=== PATIENT | male | born 1970 | race Caucasian/White ===

== ENCOUNTER 2016-12-23 11:54 | Emergency (ER) | payer OTHER ==
[~2016-12-23] VITALS: Ht 160 cm; Wt 72.0 kg
[2016-12-23 11:59] VITALS: Ht 160 cm; Wt 72.0 kg
[2016-12-23 14:15] LABS: ADD SCAN DIFF NO
[2016-12-23 14:18] LABS: BASOPHILS % 0.3 % (0.0-2.0); EOSINOPHILS # 0.1 10^3/ul (0.0-0.5); EOSINOPHILS % 0.7 % (0.0-7.0); HEMATOCRIT 36.1 % (42.0-52.0); HEMOGLOBIN 11.5 g/dl (14.0-18.0); LYMPHOCYTES # 1.8 10^3/ul (0.8-2.9); LYMPHOCYTES % 16.8 % (15.0-51.0); MEAN CORPUSCULAR HEMOGLOBIN 29.6 pg (29.0-33.0); MEAN CORPUSCULAR HGB CONC 31.9 g/dl (32.0-37.0); MEAN PLATELET VOLUME 8.5 fl (7.4-10.4); MONOCYTE # 0.5 10^3/ul (0.3-0.9); MONOCYTES % 4.6 % (0.0-11.0); NEUTROPHIL # 8.5 10^3/ul (1.6-7.5); NEUTROPHILS % 77.3 % (39.0-77.0); PLATELET COUNT 456 10^3/UL (140-415); RED BLOOD COUNT 3.88 10^6/ul (4.70-6.10); RED CELL DISTRIBUTION WIDTH 14.2 % (11.5-14.5); WHITE BLOOD COUNT 10.9 10^3/ul (4.8-10.8)
[2016-12-23 14:30] LABS: ALBUMIN 4.2 g/dl (3.3-4.9)
[2016-12-23 14:31] LABS: POTASSIUM 4.2 mmol/L (3.5-5.1)
[2016-12-23 14:33] LABS: BILIRUBIN,INDIRECT 1.1 mg/dl (0-1.1); BILIRUBIN,TOTAL 1.1 mg/dl (0.2-1.3); CALCIUM 9.4 mg/dl (8.4-10.2); CREATININE 0.74 mg/dl (0.61-1.24); TOTAL PROTEIN 8.3 g/dl (6.1-8.1)
[2016-12-23 14:39] LABS: ALBUMIN/GLOBULIN RATIO 1.02
[2016-12-23] MEDS ORDERED: SOD CHLORIDE 0.9% 100 ML ONE (14:46)
[2016-12-23] MEDS ORDERED: IOHEXOL 300MG/ML 150 ML BTL ONE (14:46)
--- NOTE | 2016-12-23 15:33 | RADRPT ---
PROCEDURE: CT abdomen and pelvis with contrast. CLINICAL INDICATION: Abdominal pain. The patient is status post abdominal surgery 2 months prior. TECHNIQUE: CT scan of the abdomen and pelvis with contrast was performed after the uneventful intravenous admin istration of 100 cc of Omnipaque-300. Coronal and sagittal reformatted images were obtained from the axial source images. The total exam CTDI equals 10.43 mGy and the total exam DLP equals 668.3 mGy-c m. One or more of the following dose reduction techniques were used: - Automated exposure control. - Adjustment of the mA and/or kV according to patient size. - Use of iterative reconstruction technique. COMPARISON: None available. FINDINGS: Visualized lower thorax: There is subsegmental atelectasis at both lung bases and within the lingula. The visualized heart is unremarkable. Hepatobiliary system and spleen: The liver is normal in size and density with no focal hepatic lesion identified. There is no intra o r extrahepatic biliary ductal dilatation. The gallbladder is unremarkable. The spleen is unremarkabl e. The pancreas is unremarkable. Adrenal glands and genitourinary system: The adrenal glands are unremarkable. There are no renal masses or hydronephrosis. The urinary bladde r is unremarkable. The prostate gland and seminal vesicles are unremarkable. Gastrointestinal system: There is postoperative change related to prior hemicolectomy with anastomosis in the right mid abdom en and right lower quadrant. There is also been prior right lower quadrant colostomy status post ta [place]. There is mild asymmetric thickening of the right rectus muscle with no focal drainable colle ction within the subcutaneous tissues. There is no bowel wall thickening or evidence of obstruction. There is swirling of the mesentery with inflammatory change and small foci of air lower abdomen at and below the level of the umbilicus with small amount of surrounding fluid in the adjacent soft ti ssues. No focal drainable collection is seen within the abdomen or pelvis. There is no evidence of bowel obstruction. Peritoneum, vascular system, lymphatics: There is no free intraperitoneal air or free fluid. There is no mesenteric or retroperitoneal adenop athy. There are atherosclerotic changes of the aorta, which is nonaneurysmal. Musculoskeletal system: There are no concerning osseous lesions. IMPRESSION: 1. Postoperative change related to hemicolectomy with bowel anastomoses in the right mid abdomen an d right lower quadrant. Asymmetric thickening of the right rectus muscle, which occurs in the region of a prior right lower quadrant colostomy. No focal drainable collection within the subcutaneous t issues. 2. Nonspecific swirlling of the ventral mesentery at and below the level of the umbilicus with a fe w small foci of air within this region and associated surrounding inflammatory change and trace flui d. These findings are nonspecific and may be partially related to postoperative change. Omental in farct or an alternate focal inflammatory process is not excluded. No focal drainable collection wit hin the abdomen or pelvis. Short interval follow-up is recommended. 3. Vascular calcifications consistent with atherosclerosis. RPTAT: GG .Wlater Isaac MD, MD Date Time Electronically viewed and signed by .Walter Isaac MD, on 12/23/2016 15:32 .P/
[2016-12-23 17:48] VITALS: BP 134/66; PULSE 88; RESP 18
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
== END 2016-12-23 17:55 | disposition home or self-care (01) ==
LOC: FTE 11:54
DX: K94.09 Other complications of colostomy (principal)
CPT/HCPCS: 74177; 80053; 83690; 85025; Q9967; 36415

== ENCOUNTER 2017-04-13 22:18 | Emergency (ER) | payer OTHER ==
[~2017-04-13] VITALS: Ht 170.2 cm; Wt 74.5 kg
[2017-04-13 23:41] VITALS: Ht 170.2 cm; Wt 74.5 kg
--- NOTE | 2017-04-14 02:40 | ERD ---
ER Documentation Chief Complaint Date/Time DATE: 04/14/17 TIME: 02:38 Chief Complaint Need PICC line dressing change HPI 36-year-old male presents to emergency department for PICC line dressing change , patient's nurse change the PICC line, now it's bleeding, patient denies any symptoms. Patient just wants PICC line to be checked and change. Patient has a TPN that goes through it. Patient does not have any problems with this. ROS All systems reviewed and are negative except as per history of present illness. Medications Home Meds Reported Medications [none] Unknown Strength No Conflict Check 04/14/17 Allergies Allergies: Coded Allergies: No Known Allergy (Unverified , 04/14/17) PMhx/Soc History of Surgery: Yes (adbomional surgery; colostomy) Anesthesia Reaction: No Hx Neurological Disorder: No Hx Respiratory Disorders: No Hx Cardiac Disorders: No Hx Psychiatric Problems: No Hx Miscellaneous Medical Probl: Yes (hiv) Hx Alcohol Use: No Hx Substance Use: No Hx Tobacco Use: No FmHx Family History: No coronary disease, No diabetes, No other Physical Exam Vitals Vital Signs Date Time Temp Pulse Resp B/P Pulse Ox O2 Delivery O2 Flow Rate FiO2 04/13/17 23:41 97.8 98 18 141/80 98 Physical Exam GENERAL: The patient is well developed and appropriate for usual state of health, in no apparent distress. CHEST: Clear to auscultation bilaterally. There are no rales, wheezes or rhonchi. HEART: Regular rate and rhythm. No murmurs, clicks, rubs or gallops. No S3 or S4. ABDOMEN: Soft, nontender and nondistended. Good bowel sounds. No rebound or guarding. No gross peritonitis. No gross organomegaly or masses. No Awad sign or McBurney point tenderness.colostomy in place. BACK: No midline or flank tenderness. EXTREMITIES: Equal pulses bilaterally. There is no peripheral clubbing, cyanosis or edema. No focal swelling or erythema. Full range of motion. Grossly neurovascularly intact. NEURO: Alert and oriented. Cranial nerves 2-12 intact. Motor strength in all 4 extremities with 5/5 strength. Sensation grossly intact. Normal speech and gait. SKIN: noted PICC line in place in the mild bleeding.There is no apparent rash or petechia. The skin is warm and dry. HEMATOLOGIC AND LYMPHATIC: There is no evidence of excessive bruising or lymphedema. No gross cervical, axillary, or inguinal lymphadenopathy. Procedures/MDM Medical decision making: Patient is here for recheck of PICC line, also for dressing change. Does not appear to be dislodged. Patient's PICC line is working well. No symptoms of any infection on the site. Patient was advised to follow with primary care doctor to 3 days return to emergency department for worsening symptoms. Disposition: Home. Stable. Departure Diagnosis: Primary Impression: Bleeding from PICC line Encounter type: initial encounter Qualified Code: T82.838A - Bleeding from peripherally inserted central venous catheter (PICC), initial encounter Condition: Stable Patient Instructions: Picc Line Care OCTAVIO CARREON NP Apr 14, 2017 02:40
== END 2017-04-14 03:37 | disposition home or self-care (01) ==
LOC: FTE 22:18
DX: T82.838A Hemorrhage due to vascular prosthetic devices, implants and grafts, initial encounter (principal); Y82.8 Other medical devices associated with adverse incidents
CPT/HCPCS: 99282